=== PATIENT | female | born 1955 | race Caucasian/White ===

== ENCOUNTER 2018-04-01 10:07 | Emergency (ER) | payer OTHER ==
[2018-04-01] MEDS: KETOROLAC 30 MG INJ IM (11:13)
== END 2018-04-01 11:54 | disposition home or self-care (01) ==
LOC: FTE 10:07
DX: M25.562 Pain in left knee (principal); M19.90 Unspecified osteoarthritis, unspecified site
CPT/HCPCS: 29505; 73562; 96372; 99284-25